=== PATIENT | female | born 1995 | race Asian ===

== ENCOUNTER 2019-03-29 15:06 | Emergency (ER) | payer OTHER ==
[~2019-03-29] VITALS: Ht 165.1 cm; Wt 56.8 kg
[~2019-03-29 15:06] MED LIST: MEDROL 4MG DOSPA4 MG PO
[2019-03-29 15:07] VITALS: TEMP 97
[2019-03-29 15:33] LABS: BASO # 0.1 (0.0-0.2); BASO % 0.5 % (0.0-2.0); EOS # 0.1 (0.0-0.7); EOS % 0.6 % (0-4.0); GRAN # 7.4 (1.4-6.5); GRAN % 78.8 % (42.2-75.2); HEMATOCRIT 45.6 % (37.0-47.0); HEMOGLOBIN 15.3 g/dl (12.5-16.0); LYMPH # 1.4 (1.2-3.4); LYMPH % 15.3 % (20.0-51.0); MEAN CELL VOLUME 88 fl (80.0-100.0); MEAN CORPUSCULAR HEMOGLOBIN 29 pg (27.0-31.0); MEAN CORPUSCULAR HGB CONC 34 g/dl (33.0-37.0); MEAN PLATELET VOLUME 9.7 fl (7.4-10.4); MONO # 0.4 (0.1-0.6); MONO % 4.6 % (1.7-9.3); PLATELET COUNT 339 K/mm3 (130-400)
[2019-03-29 15:47] LABS: CREATININE, serum 0.8 (0.52-1.25); POTASSIUM 4.1 mmol/L (3.4-5.0)
[2019-03-29] MEDS ORDERED: IMITREX 5MGNAS NS (16:32)
[2019-03-29 16:48] VITALS: BP 115/75; PULSE 70
== END 2019-03-29 16:48 | disposition home or self-care (01) ==
LOC: COL.ER 15:06
PROVIDERS: Emergency Medicine
DX: G43.909 Migraine, unspecified, not intractable, without status migrainosus (principal); R06.4 Hyperventilation
CPT/HCPCS: J0780; J1200; J1885; J7030